=== PATIENT | female | born 1975 | race Caucasian/White ===

== ENCOUNTER 2017-10-30 20:28 | Emergency (ER) | payer OTHER ==
[~2017-10-30] VITALS: Ht 172.7 cm; Wt 99.0 kg
[~2017-10-30 20:28] MED LIST: IBUP-2070 PO; ISON300T4 PO; OXYC-167 PO
[2017-10-30] MEDS ORDERED: LIDOCAINE HCL 1% 10 ML VIAL INJ ONE (21:15)
[2017-10-30] MEDS ORDERED: BACITRACIN 0.9 GM PACKET OINTMENT TP ONE (22:45)
[2017-10-30 23:12] VITALS: BP 122/86
== END 2017-10-30 23:14 | disposition home or self-care (01) ==
LOC: EMS 20:28
DX: S61.210A Laceration without foreign body of right index finger without damage to nail, initial encounter (principal); E11.9 Type 2 diabetes mellitus without complications; W26.0XXA Contact with knife, initial encounter; Y93.G1 Activity, food preparation and clean up; Y92.89 Other specified places as the place of occurrence of the external cause; Y99.8 Other external cause status
CPT/HCPCS: 12001; 99283; J3490